=== PATIENT | male | born 1965 | race Caucasian/White ===

== ENCOUNTER 2020-09-10 06:04 | Inpatient (IN) ==
[2020-09-10] MEDS ORDERED: CeFAZolin Syr 2,000MG/20 ML 2,000 MG/20 ML SYRINGE IVPB ONE (06:31)
[2020-09-10] MEDS ORDERED: Ringers Solution, Lactated 1,000 ML IVC SCH (06:45)
[2020-09-10] MEDS ORDERED: *HR* Rocuronium Bromide 50 MG/5 ML VIAL ONE ×2 (07:13→08:32)
[2020-09-10] MEDS ORDERED: Ondansetron 4 MG/2 ML VIAL ONE (07:13)
[2020-09-10] MEDS ORDERED: *HR* Propofol 200 MG/20 ML VIAL IVP ONE ×2 (07:13→07:55)
[2020-09-10] MEDS ORDERED: *HR* FentaNYL (PF) 100 MCG/2 ML VIAL ONE ×2 (07:13→08:09)
[2020-09-10] MEDS ORDERED: Lidocaine -MPF 2% 2 ML VIAL ONE (07:13)
[2020-09-10] MEDS ORDERED: *HR* Succinylcholine 200 MG/10 ML VIAL IVP ONE (07:13)
[2020-09-10] MEDS ORDERED: *HR* OxyCODONE Immed Rel 5 MG TABLET PO PRN (07:20)
[2020-09-10] MEDS ORDERED: *HR* Labetalol 20 MG/4 ML SYRINGE IVP PRN (07:20)
[2020-09-10] MEDS ORDERED: Pregabalin 75 MG CAPSULE PO ONE (07:20)
[2020-09-10] MEDS ORDERED: *HR* HYDROmorphone 2 MG TABLET PO PRN (07:20)
[2020-09-10] MEDS ORDERED: Famotidine 20 MG/2 ML VIAL IVP ONE (07:20)
[2020-09-10] MEDS ORDERED: Acetaminophen IV 1,000 MG/100 ML BAG IVPB ONE (07:20)
[2020-09-10 07:57] LABS: Chol/HDL Ratio 5.3 (0-4.9)
[2020-09-10] MEDS ORDERED: *HR* Metoprolol 5 MG/5 ML VIAL IVP ONE (08:14)
[2020-09-10] MEDS ORDERED: Ketorolac 30 MG/ML VIAL ONE (09:30)
[2020-09-10] MEDS: *HR* HYDROmorphone (PF) 1 MG/ML SYRINGE IVP PRN ×6 (09:32→10:28)
[2020-09-10] MEDS ORDERED: Ondansetron 4 MG/2 ML VIAL IVP PRN (11:00)
[2020-09-10] MEDS ORDERED: Naloxone 0.4 MG/ML INJ IVP PRN (11:00)
[2020-09-10] MEDS ORDERED: Ipratropium/Albuterol Neb 3 ML ONE (11:10)
[2020-09-10] MEDS: Ipratropium/Albuterol Neb 3 ML IH SCH ×4 (11:11→23:49)
[2020-09-10] MEDS ORDERED: 0.9 % Sodium Chloride 1,000 ML ONE (11:17)
[2020-09-10] MEDS: Ketorolac 15 MG/ML VIAL IVP SCH ×2 (11:21→17:31)
[2020-09-10] MEDS: *HR* HYDROcodone/Acet 5/325 mg TABLET PO PRN ×3 (11:21→22:10)
[2020-09-10] MEDS: 0.9 % Sodium Chloride 1,000 ML IVC SCH (11:21)
[2020-09-10] MEDS: *HR* Heparin 5,000 UNIT/ML VIAL SQ SCH ×2 (14:12→21:02)
[2020-09-10] MEDS: Gabapentin 300 MG CAPSULE PO SCH ×2 (14:12→21:02)
[2020-09-10] MEDS: Sennosides/Docusate Sodium TABLET PO SCH (21:02)
[2020-09-10] MEDS: Famotidine 20 MG TABLET PO SCH (21:02)
[2020-09-11] MEDS: Ketorolac 15 MG/ML VIAL IVP SCH ×2 (00:17→05:00)
[2020-09-11] MEDS: 0.9 % Sodium Chloride 1,000 ML IVC SCH (01:15)
[2020-09-11] MEDS: Ipratropium/Albuterol Neb 3 ML IH SCH ×3 (03:50→11:22)
[2020-09-11] MEDS: *HR* HYDROcodone/Acet 5/325 mg TABLET PO PRN (05:00)
[2020-09-11] MEDS: *HR* Heparin 5,000 UNIT/ML VIAL SQ SCH (05:00)
[2020-09-11 05:48] LABS: Mean Corpuscular HGB Conc 31.7 g/dL (31.6-35.5); Mean Corpuscular Hemoglobin 30.1 pg (28.0-33.3); Mean Corpuscular Volume 94.9 fL (83.0-100.0); Mean Platelet Volume 10.3 fL (9.4-12.4); Platelet Count 196 K/mcL (140-400); Red Blood Count 4.32 M/mcL (4.19-5.50); Red Cell Distribution Width 13.4 % (11.5-14.5); White Blood Count 12.8 K/mcL (4.3-11.1)
[2020-09-11 06:18] LABS: BUN/Creatinine Ratio 21 (6-26); Blood Urea Nitrogen 16 mg/dL (6-20); Calcium 8.1 mg/dL (8.6-10.3); Carbon Dioxide 23 mEq/L (23-29); Chloride 106 mEq/L (98-107); Glucose 123 mg/dL (70-105); Magnesium 1.9 mg/dL (1.6-2.6); Osmolality,Calculated 287 (280-300); Sodium 137 mEq/L (136-145); eGFR For African Americans > 60 (> 60); eGFR For Non-African Americans > 60 (> 60)
[2020-09-11] MEDS: Gabapentin 300 MG CAPSULE PO SCH (07:50)
[2020-09-11] MEDS: Famotidine 20 MG TABLET PO SCH (07:50)
[2020-09-11] MEDS: Sennosides/Docusate Sodium TABLET PO SCH (07:50)
[2020-09-11] MEDS ORDERED: Aspirin Enteric Coated 81 MG Tablet PO SCH (09:00)
[2020-09-11 09:53] VITALS: BP 114/78
== END 2020-09-11 11:45 | disposition home or self-care (01) | DRG 164 ==
LOC: SAMDAY 06:04 → ICNU 11:03
PROVIDERS: ADMIT Thoracic Surgery (Cardiothoracic Vascular Surgery); ATTEND Thoracic Surgery (Cardiothoracic Vascular Surgery)